=== PATIENT | male | born 1955 | race Caucasian/White ===

== ENCOUNTER 2021-03-11 16:20 | Emergency (ER) | payer MEDICARE ==
[~2021-03-11] VITALS: Ht 167.6 cm; Wt 63.5 kg
[~2021-03-11 16:20] MED LIST: ADULT LOW DOSE81 MG PO; ALDOMET250 MG PO; ASA81BEC PO; AVANDIA8 MG PO; CARDURA4 MG PO; CLONIDINE HCL0.2 M2 PO; HYDRALAZINE 5050 M1 PO; HYDRALAZINE HC100 MG PO; HYDROCHLOROTHIA25 M1 PO; LANTUS SQ; LIDEX30 GM TOP; LORTAB 5 MG/5001 TAB PO; MAGNES PO; MAGNESIUM250 M1 PO; MIRALAX255 GM; MIRALAX255 GM PO; POTASSIUM99 M1; POTASSIUM99 M1 PO; WELLBUTRIN SR150 MG PO; ZOCOR40 MG PO
[2021-03-11] MEDS ORDERED: CARVEDILOL25 MG PO (16:36)
[2021-03-11] MEDS ORDERED: ALLOPURINOL 10100 M3 PO (16:36)
[2021-03-11] MEDS ORDERED: NORCO5 PO ×2 (17:24→19:21)
[2021-03-11 17:37] VITALS: BP 215/107
== END 2021-03-11 17:38 | disposition home or self-care (01) ==
LOC: M.ERS 16:20
DX: S92.355A Nondisplaced fracture of fifth metatarsal bone, left foot, initial encounter for closed fracture (principal); I10 Essential (primary) hypertension; E11.40 Type 2 diabetes mellitus with diabetic neuropathy, unspecified; X50.1XXA Overexertion from prolonged static or awkward postures, initial encounter; Y93.89 Activity, other specified; Y92.89 Other specified places as the place of occurrence of the external cause; Y99.8 Other external cause status